=== PATIENT | male | born 1960 | race Caucasian/White ===

== ENCOUNTER → 2017-04-13 | Outpatient (CLI) | payer SELFPAY ==
--- NOTE | 2017-04-13 10:19 | DIAGNOSTIC IMAGING REPORT ---
STANDING LUMBAR SPINE RADIOGRAPHS CLINICAL HISTORY: Compression fracture. COMPARISON: None. FINDINGS: Note is made of cholecystectomy clips. There is a mild compression deformity of the superior endplate of L1 with anterior wedging. There is 30% loss of vertebral body height anteriorly. Retropulsion is difficult to assess for by radiography but no retropulsion is identified. There are no additional compression deformities. There is minimal osteophytosis at several levels. Sacroiliac joints are intact. IMPRESSION: 1. Mild L1 compression fracture, likely subacute to chronic. 2. Otherwise, unremarkable lumbar spine radiographs with mild multilevel degenerative disc disease and facet arthrosis. Electronically signed by: Arcenio Boyd M.D. 04/13/2017 10:18 AM Dictated Date/Time: 04/13/2017 10:09 AM
== END | disposition home or self-care (01) ==
LOC: C.RAD 09:42
PROVIDERS: ATTEND Physician Assistant
DX: S32.010A Wedge compression fracture of first lumbar vertebra, initial encounter for closed fracture (principal); X58.XXXA Exposure to other specified factors, initial encounter